=== PATIENT | female | born 1975 | race Caucasian/White ===

== ENCOUNTER 2019-11-19 18:15 | Emergency (ER) | payer SELFPAY ==
[~2019-11-19] VITALS: Ht 165.1 cm; Wt 61.2 kg
[2019-11-19] MEDS ORDERED: ONDANSETRON 4 MG/2 ML VIAL IV ONE (19:15)
[2019-11-19] MEDS ORDERED: HYDROMORPHONE 1 MG/1 ML DISP.SYRIN IV ONE (19:15)
[2019-11-19] MEDS ORDERED: IV NORMAL SALINE 1000 ML BAG IV ONE (19:15)
[2019-11-19] MEDS ORDERED: KETOROLAC TROMETHAMINE 30 MG INJ IVP ONE (19:15)
[2019-11-19 19:40] LABS: BASOPHILS % (AUTO) 0.2 % (0.0-2.0); EOSINOPHILS % (AUTO) 0.1 % (0.0-7.0); HEMATOCRIT 35.7 % (31.2-41.9); HEMOGLOBIN 11.8 g/dL (10.9-14.3); LYMPHOCYTES # (AUTO) 0.9 K/uL (20.0-40.0); LYMPHOCYTES % (AUTO) 8.6 % (20.5-51.5); MEAN CORPUSCULAR HEMOGLOBIN 28.8 uug (24.7-32.8); MEAN CORPUSCULAR HGB CONC 33 g/dL (32.3-35.6); MEAN CORPUSCULAR VOLUME 86.8 fL (75.5-95.3); MONOCYTES # (AUTO) 0.7 K/uL (2.0-10.0); NEUTROPHILS # (AUTO) 8.6 K/uL (1.8-8.9); NEUTROPHILS % (AUTO) 84.1 % (38.5-71.5); PLATELET COUNT (AUTO) 204 K/uL (179-408); RED BLOOD CELL COUNT(AUTO) 4.12 MIL/uL (3.63-4.92); WHITE BLOOD COUNT (AUTO) 10.3 K/uL (3.8-11.8)
[2019-11-19 19:45] LABS: CREATININE 0.8 mg/dL (0.6-1.3); POTASSIUM 3.6 mmol/L (3.5-5.1)
[2019-11-19 19:57] LABS: BILIRUBIN,DIRECT 0.1 mg/dL (0.0-0.2); BILIRUBIN,TOTAL 0.3 mg/dL (0.2-1.0); TOTAL PROTEIN, SERUM 6.5 g/dL (6.4-8.2)
[2019-11-19] MEDS ORDERED: KETOROLAC TROMETHAMINE 30 MG INJ ONE (19:59)
[2019-11-19] MEDS ORDERED: ONDANSETRON 4 MG/2 ML VIAL ONE (20:00)
[2019-11-19] MEDS ORDERED: HYDROMORPHONE 1 MG/1 ML DISP.SYRIN ONE (20:00)
[2019-11-19] MEDS ORDERED: IOHEXOL 300MG/ML 100 ML INFUS..BTL ONE (20:08)
[2019-11-19] MEDS ORDERED: IV NORMAL SALINE 250 ML IV ONE (20:08)
[2019-11-19] MEDS ORDERED: SWABABLE VALVE TRANSFER SET EA MC ONE (20:08)
[2019-11-19 20:16] LABS: *BILIRUBIN,URIN NEGATIVE (NEGATIVE); *BLOOD, URINE 1+ (NEGATIVE); *COLOR,URINE YELLOW (YELLOW); *KETONES,URINE NEGATIVE (NEGATIVE); *UROBILINOGEN,URINE 0.2 E.U./dl (NORMAL); LEUKOCYTE ESTERASE ,URINE 1+ (NEGATIVE); NITRITE, URINE NEGATIVE (NEGATIVE); UGLUCOSE NEGATIVE (NEGATIVE)
[2019-11-19 20:17] LABS: *URINE HCG, QUAL NEGATIVE (NEGATIVE)
[2019-11-19 20:25] LABS: *CLARITY,URINE SLIGHTLY HAZY (CLEAR)
[2019-11-19 20:27] LABS: BACTERIA,URINE FEW /HPF (NONE SEEN); SQUAMOUS EPITHELIAL CELL,UR MODERATE /HPF (NONE SEEN)
--- NOTE | 2019-11-19 20:49 | NUR ---
patient to ct scan
--- NOTE | 2019-11-19 21:11 | NUR ---
patient returned from ct scan. patient arouses to speech, respiratins even and unlabored.
--- NOTE | 2019-11-20 01:21 | NUR ---
CALLED [facility]. ETA IS 30-40MINS.
--- NOTE | 2019-11-20 01:25 | NUR ---
CALLED [facility],SPOKE TO [facility]. ETA 30-40MINS.
--- NOTE | 2019-11-20 02:00 | NUR ---
Patient discharged back to [facility] in stable condition. Written and verbal after care instructions given. Patient verbalizes understanding of instructions. Stressed follow up or return to ER for worsening s/s. Patient picked up by Florina for transport back to [facility].
[2019-11-20 02:30] VITALS: BP 94/67
== END 2019-11-20 02:31 | disposition home or self-care (01) ==
LOC: ER 18:18
DX: K52.9 Noninfective gastroenteritis and colitis, unspecified (principal); K80.20 Calculus of gallbladder without cholecystitis without obstruction; Z59.0 Homelessness; R50.9 Fever, unspecified; Z20.828 Contact with and (suspected) exposure to other viral communicable diseases; R52 Pain, unspecified
CPT/HCPCS: 36415; 71045; 74177; 76705; 76856; 80048; 80076; 81001; 83690; 84703; 85025; 85730; 87086; 87426; 93005; 96374; 96375; 99285; J1170; J1885; J2405; Q9967; U0003; A4663; C1758; J7030; J7050